=== PATIENT | male | born 1955 | race Caucasian/White ===

== ENCOUNTER → 2021-01-04 02:14 | Outpatient (CLI) | payer OTHER, SELFPAY ==
[2021-01-04 22:46] LABS: SARS-CoV-2 RNA PCR Negative
== END ==
PROVIDERS: PCP Internal Medicine; Visit Provider Internal Medicine Gastroenterology
DX: Z01.812 Encounter for preprocedural laboratory examination (principal); Z20.822 Contact with and (suspected) exposure to COVID-19
CPT/HCPCS: C9803; U0003; U0005

== ENCOUNTER 2021-01-07 00:45 | Day surgery (SDC) | payer OTHER, SELFPAY ==
[2020-12-28 08:57] VITALS: BMI 28.8
[2021-01-07 06:35] VITALS: BP 129/89; PULSE 86; RESP 20; TEMP 36.8; O2SAT 98; BMI 30.8
[2021-01-07] MEDS: LACTATED RINGERS 1,000 ML 150 ML IV CONT (06:46)
--- NOTE | 2021-01-07 07:02 | WPDANESEPPF ---
Anes - Initial Pre Proc Eval Procedure: Operation Date: 01/07/21 08:00 Proposed Procedures p Screening Colonoscopy - Fidel Narayan MD Date/Time: 01/07/21 07:02 Surgeon: Fidel Narayan MD Pre Op Diagnosis: Neoplasm Screening Patient Data Age: 65 Gender: M Height: 5 ft 8 in Weight: 91.9 kg Last Vital Signs Temp 36.8 C 01/07/21 06:35 Pulse 86 01/07/21 06:35 Resp 20 01/07/21 06:35 BP 129/89 01/07/21 06:35 Pulse Ox 98 01/07/21 06:35 Allergies Allergy/AdvReac Type Severity Reaction Status Date / Time No Known Allergies Allergy Verified 01/07/21 06:34 Home Medications Medication Instructions Recorded Confirmed Type sodium,potassium,mag sulfates 17.5 See Rx Instructions PO .COMPLEX 12/09/20 Rx gram-3.13 gram-1.6 gram oral soln #354 ml amlodipine 5 mg PO DAILY 12/28/20 01/07/21 History Patient hx anesthesia problems: none Family hx anesthesia problems: none [facility] Past Medical History Medical History Hypertension Smoker Tobacco abuse Social History Social History Smoking status: Current some day smoker Tobacco type: cigars Alcohol intake: never Substance use: never Substance use type: does not use Living arrangements: with family Spiritual care concerns: No Anes - Eval Final PreProcedure Day of Procedure 01/07/21 07:02 Patient weight: obese Heart: regular rate and rhythm Lungs: decreased breath sounds Airway: Mallampati scale class II Neurological: alert and oriented Last oral intake: >/= 8 hours ASA classification: III Emergent: no Anesthetic plan: proceed Anesthesia type and monitoring: general GIVS and standard monitoring Informed Consent: The patient's anesthetic plan and its attendant risks and benefits were discussed with the patient/family/POA. Questions were solicited and answers provided to the satisfaction of the patient/family/POA.
--- NOTE | 2021-01-07 07:30 | PM.HPGS ---
History of Present Illness History of Present Illness Consent: Risks, benefits, and alternatives have been discussed and questions answered. Patient agrees to proceed with procedure. Chief complaint: Neoplasm Screening Narrative: Ck Taylor is a 65 year old male here for first screening colonoscopy Review of Systems Constitutional: Constitutional: Denies headache(s) and Denies weakness Eyes: Eyes: Denies blurry vision ENT: Reports Normal hearing present, Denies headache(s) and Denies neck pain Cardiovascular: Cardiovascular: Denies chest pain and Denies dyspnea Respiratory: Respiratory: Denies dyspnea Gastrointestinal: Gastrointestinal: Reports no additional gastrointestinal complaints Genitourinary: Genitourinary: Denies dysuria Musculoskeletal: Musculoskeletal: Denies neck pain Integumentary/Breasts: Skin/Breast: Denies dry skin Neurologic: Reports Normal hearing present, Denies headache(s) and Denies weakness Psychiatric: Psychiatric: Denies anxiety Endocrine: Endocrine: Denies change in body appearance Hematologic/Lymphatic: Hematologic/Lymphatic: Denies easy bleeding Allergic/Immunologic: Allergic/Immunologic: Denies urticaria PMFSH Past Medical History Medical History Hypertension Smoker Tobacco abuse Social History Social History Smoking status: Current some day smoker Tobacco type: cigars Alcohol intake: never Substance use: never Substance use type: does not use Living arrangements: with family Spiritual care concerns: No Meds Home Medications and Allergies Home Medications Medication Instructions Recorded Confirmed Type sodium,potassium,mag sulfates 17.5 See Rx Instructions PO .COMPLEX 12/09/20 Rx gram-3.13 gram-1.6 gram oral soln #354 ml amlodipine 5 mg PO DAILY 12/28/20 01/07/21 History Allergies Allergy/AdvReac Type Severity Reaction Status Date / Time No Known Allergies Allergy Verified 01/07/21 06:34 Vital Signs Vital Signs - 24 hr 01/07/21 06:35 Temperature 98.2 F Pulse Rate 86 Respiratory Rate 20 Blood Pressure 129/89 Pulse Oximetry 98 Exam Const: General: comfortable and no acute distress HENMT: General nose exam: Normal nares present Eyes: General: appearance normal, both eyes and all related structures Neck: Neck: no JVD Resp: Auscultation: clear to auscultation bilaterally Cardio: Rate: regular rate Rhythm: regular rhythm GI: Inspection: non-distended GI Palp: Yes Soft to palpation Skin: General skin exam: normal color Neuro: General: gait normal Speech: normal speech Extrem: General: normal to inspection Psych: Mental Status: mental status grossly normal Assessment and Plan Assessment and plan (1) Colon cancer screening: Code(s): Z12.11 - Encounter for screening for malignant neoplasm of colon Status: Acute Assessment and Plan: proceed with colonoscopy
[2021-01-07 07:54] VITALS: BP 116/74; PULSE 72; RESP 19; O2SAT 99
[2021-01-07 08:04] VITALS: BP 110/68; PULSE 72; RESP 20; O2SAT 98
[2021-01-07 08:14] VITALS: BP 125/86; PULSE 64; RESP 15; O2SAT 99
== END 2021-01-07 08:25 | disposition home or self-care (01) ==
PROVIDERS: PCP Internal Medicine; Visit Provider Internal Medicine Gastroenterology
PROC: 0DJD8ZZ Inspection of Lower Intestinal Tract, Via Natural or Artificial Opening Endoscopic (ICD-10-PCS; CPT 45378; principal; 2021-01-07 08:00)
DX: Z12.11 Encounter for screening for malignant neoplasm of colon (principal); K63.5 Polyp of colon; K57.30 Diverticulosis of large intestine without perforation or abscess without bleeding; K64.8 Other hemorrhoids; I10 Essential (primary) hypertension; Z72.0 Tobacco use; E66.9 Obesity, unspecified; Z68.30 Body mass index [BMI] 30.0-30.9, adult
CPT/HCPCS: 45385; 88305; J2704; J7120

== ENCOUNTER 2021-07-06 06:39 | Outpatient (CLI) | payer OTHER, SELFPAY ==
[2021-07-06 07:46] LABS: Basophils Absolute Auto 0.1 K/mm3 (0.0-0.1); Basophils Percent Auto 0.9 % (0.2-1.2); Eosinophils Absolute Auto 0.3 K/mm3 (0-0.3); Hematocrit 45.1 % (42.0-52.0); Hemoglobin 15.1 g/dL (14.0-18.0); Immature Granulocyte Absolute 0.07 K/mm3 (0.00-0.031); Immature Granulocyte Percent A 0.8 % (0-0.5); Lymphocytes Absolute Auto 1.61 K/mm3 (0.9-3.2); Lymphocytes Percent Auto 17.8 % (18.3-44.2); Mean Corpuscular HGB Conc 33.5 g/dl (32-36); Mean Corpuscular Hemoglobin 31.3 pg (26-34); Mean Corpuscular Volume 93.6 fl (80-100); Mean Platelet Volume 10.2 fl (7.4-10.4); Monocytes Percent Auto 11.3 % (2.6-8.5); Neutrophils Percent Auto 66.2 % (45.5-73.1); Platelet Count Result 255 k/mm3 (150-375); Red Blood Count 4.82 M/mm3 (4.6-6.20); White Blood Count 9.1 K/mm3 (4.5-10.0)
[2021-07-06 08:27] LABS: Alanine Aminotransferase 24 U/L (4-50); Albumin Level 4.5 g/dL (3.5-5.1); Alkaline Phosphatase 74 U/L (38-126); Anion Gap 8 mmol/L (8-16); Aspartate Amino Transferase 30 U/L (17-59); Bilirubin,Total 0.7 mg/dL (0.2-1.3); Blood Urea Nitrogen 21 mg/dL (9-20); Calcium 9.5 mg/dL (8.4-10.2); Carbon Dioxide 24 mmol/L (22-30); Chloride 106 mmol/L (98-107); Cholesterol 204 mg/dL (0-200); Estimated Glomerular Filt Rate > 60; Glucose 109 mg/dL (65-110); HDL Direct 37 mg/dL; Potassium 4.2 mmol/L (3.4-5.0); Sodium 138 mmol/L (137-145); Triglycerides 118 mg/dL (<150)
[2021-07-06 08:37] LABS: LDL Cholesterol Direct 112 mg/dL
[2021-07-06 09:41] LABS: Creatinine Urine 244.6 mg/dL
[2021-07-06 09:45] LABS: Microalbumin Urine Random 9.7 mg/L (0-16.7)
[2021-07-06 10:18] LABS: Hepatitis B Surface Antigen Negative (Negative)
[2021-07-06 10:23] LABS: HAV RESULT Negative (Negative); Hepatitis B Core IgM Result Negative (Negative)
[2021-07-06 10:35] LABS: Hepatitis C Virus Antibody Negative (Negative)
== END 2021-07-06 06:40 | disposition home or self-care (01) ==
PROVIDERS: PCP Family Medicine; Visit Provider Physician Assistant
DX: I10 Essential (primary) hypertension (principal); R42 Dizziness and giddiness; Z76.89 Persons encountering health services in other specified circumstances
CPT/HCPCS: 36415; 80053; 80061; 80074; 82043; 84153; 85025; G0103

== ENCOUNTER 2021-07-08 07:55 | Outpatient (CLI) | payer OTHER, SELFPAY ==
--- NOTE | ~2021-07-08 | CT_ITS ---
EXAMINATION: CT brain wo con EXAM DATE: 07/08/2021 08:17 INDICATION: Dizziness TECHNIQUE: Spiral CT of the head was performed without contrast. Axial, coronal and sagittal images were reviewed. The dose-length product (DLP) for this examination was 605.33 mGy-cm. The exposure w as tailored according to patient size, and iterative reconstruction (ASIR) was used as additional dos e reduction technique. There is no prior study for comparison. FINDINGS: There is no acute intraparenchymal hemorrhage. No evidence of intraparenchymal brain mass lesion. No evidence of acute infarction. Please note that initial head CT has limited sensitivity f or small or acute infarctions. There is mild periventricular and subcortical hypodensity, nonspecific but probably related to small vessel ischemic disease. There is mild prominence of the sulci and v entricles related to cerebral atrophy. There is intracranial carotid arteriosclerosis. There are n o extra-axial collections. There is no mass effect or midline shift. The orbits are unremarkable. Soft tissue is unremarkable. Mild right ethmoid mucoperiosteal thickening. There is left frontal cr aniotomy, fixation hardware. IMPRESSION: 1. No acute intracranial findings. 2. Chronic age related findings. Reviewed, dictated and finalized at location A.
== END 2021-07-08 07:56 | disposition home or self-care (01) ==
LOC: ANHIMG 08:01
PROVIDERS: PCP Family Medicine; Visit Provider Physician Assistant
DX: R42 Dizziness and giddiness (principal); I10 Essential (primary) hypertension
CPT/HCPCS: 70450

== ENCOUNTER 2021-07-19 14:36 | Outpatient (CLI) | payer OTHER, SELFPAY ==
--- NOTE | ~2021-07-19 | US_ITS ---
EXAMINATION: US carotid duplex BI DATE: 07/19/2021 15:04 INDICATION: Hypertension. Headaches. TECHNIQUE: Grayscale, color Doppler, and pulsed Doppler images of the cervical carotid arteries were obtained. The degree of vessel stenosis is placed in one of the following categories: normal, <50%, 5 0-69%, >=70% but less than near-occlusion, near-occlusion, or total occlusion. Note that percent sten osis relative to normal distal artery lumen diameter is indirectly measured from velocity measurement s as described by Carter, et al. Radiology 2003; 229:340-346. Notes: Normal: Peak systolic velocity <125 centimeters/sec and no plaque <50%. Peak systolic velocity <125 ( EDV <40; ICA/CCA PSV ratio <2.0; used these factors only a tandem lesions or low cardiac output or co ntralateral disease) 50-69 %: PSV 125-230 (EDV 40-100; ratio 2-4) >= 70% but less than near occlusion: PSV greater than 230 (EDV > 100; ratio> 4.0) Near Occlusion: PSV that is variable; markedly narrowed lumen Occlusion: Absent flow on color/spectral Doppler and no lumen on jay scale. COMPARISON: None. FINDINGS: RIGHT: The right common carotid artery (CCA) peak systolic velocity (PSV) is 104 cm/s. The right internal ca rotid artery (ICA) PSV is 101 cm/s. The right ICA end-diastolic velocity (EDV) is 38 cm/s. The right ICA/CCA PSV ratio is 1.0. The external carotid artery (ECA) PSV is 119 cm/s. There is antegrade flow in the right vertebral artery. LEFT: The left CCA PSV is 89 cm/s. The left ICA PSV is 106 cm/s. The left ICA EDV is 43 cm/s. The left ICA/ CCA PSV ratio is 1.2. The ECA PSV is 127 cm/s. There is antegrade flow in the left vertebral artery. IMPRESSION: 1. Less than 50% stenosis in the right internal carotid artery by sonographic criteria. 2. Less than 50% stenosis in the left internal carotid artery by sonographic criteria. Reviewed, dictated and finalized at location A. IMPRESSION: 1. Less than 50% stenosis in the right internal carotid artery by sonographic marv mckeon. 2. Less than 50% stenosis in the left internal carotid artery by sonographic cindi shrestha.
== END 2021-07-19 14:37 | disposition home or self-care (01) ==
LOC: ANHIMG 14:38
PROVIDERS: PCP Family Medicine; Visit Provider Physician Assistant
DX: I10 Essential (primary) hypertension (principal); I65.23 Occlusion and stenosis of bilateral carotid arteries
CPT/HCPCS: 93880

== ENCOUNTER 2022-03-23 11:38 | Emergency (ER) | payer OTHER, SELFPAY ==
--- NOTE | ~2022-03-23 | XR_ITS ---
XR elbow RT min 3V DATE: 03/23/2022 12:34 INDICATION: Fall today. Right elbow and upper arm pain TECHNIQUE: 4 views COMPARISON: None FINDINGS: No fracture or dislocation or joint effusion. No periosteal reaction or bone destruction. IMPRESSION: No fracture or dislocation or joint effusion Reviewed, dictated and finalized at location A.
--- NOTE | ~2022-03-23 | XR_ITS ---
XR humerus RT DATE: 03/23/2022 12:34 INDICATION: Fall today. Right upper arm pain TECHNIQUE: 2 views COMPARISON: None FINDINGS: No fracture or dislocation, periosteal reaction or bone destruction. IMPRESSION: No fracture or dislocation Reviewed, dictated and finalized at location A. IMPRESSION: No fracture or dislocation
[2022-03-23 11:40] VITALS: BP 153/94; PULSE 65; RESP 16; TEMP 36.3; O2SAT 99
--- NOTE | 2022-03-23 12:12 | PC.NURSE ---
Provider at bedside
--- NOTE | 2022-03-23 12:30 | PC.NURSE ---
Pt to Xray
--- NOTE | 2022-03-23 13:03 | ED.UPPEXIN ---
HPI - Extremity Injury (Upper) General Chief Complaint: Extremity Injury, Upper Stated Complaint: fall, r arm pain Time Seen by Provider: 03/23/22 11:53 Source: patient Mode of arrival: ambulatory Limitations: no limitations History of Present Illness HPI narrative: 66-year-old male presents today with complaints of right upper arm pain after a fall he sustained this morning. Patient states he was walking slipped in the mud and fell with right arm outstretched. Since then his arm has been with pain. Denies any decrease in range of motion. Patient denies using any ice, analgesics, or any other pain relieving modalities. Patient currently with full range of motion, sensation intact no ecchymosis noted. Related Data Home Medications Medication Instructions Recorded Confirmed amlodipine 5 mg tablet 5 mg PO DAILY 12/28/20 01/07/21 Allergies Allergy/AdvReac Type Severity Reaction Status Date / Time No Known Allergies Allergy Verified 01/07/21 06:34 Review of Systems Review of Systems: CONSTITUTIONAL: Denies fever, chills, or sweats. EYES: Denies visual changes, redness, or discharge. ENT: Denies rhinorrhea, congestion, sore throat, or otalgia. CARDIOVASCULAR: Denies chest pain, palpitations, or edema. RESPIRATORY: Denies cough or dyspnea. GASTROINTESTINAL: Denies abdominal pain, nausea, vomiting, or diarrhea. GENITOURINARY: Denies dysuria or hematuria. SKIN: Denies rash or itching. MUSCULOSKELETAL: Right upper arm pain. Denies back pain, joint pain, or myalgia. NEUROLOGIC: Denies headache, numbness, dizziness, or weakness. PSYCHIATRIC: Denies anxiety or depression. [facility] Past Medical History Medical History Colon cancer screening Hypertension Smoker Tobacco abuse Social History Social History Smoking status: Current some day smoker Tobacco type: cigars Alcohol intake: never Substance use: never Substance use type: does not use Spiritual care concerns: No Exam Narrative: GENERAL: Well-appearing, well-nourished, and in no acute distress. HEAD: Normocephalic, atraumatic. EYES: PERRLA and EOMI. ENT: Nares clear, no rhinorrhea or epistaxis. Mucous membranes moist. Oropharynx without tonsillar hypertrophy exudate or other lesions. Bilateral TMs pearly jay nonbulging NECK: Supple. No adenopathy or masses. No carotid bruits or JVD CHEST: Clear to auscultation. No respiratory distress. No wheezes rales or rhonchi HEART: Regular rate and rhythm. No murmur heard. Normal peripheral pulses. ABDOMEN: Soft, nontender, nondistended, normal active bowel sounds. EXTREMITIES: Tenderness with palpation to right upper arm. No ecchymosis noted, no swelling noted, full range of motion. Right bicep appears smaller in nature than left. Range of motion. No edema. SKIN: Warm, dry, no rash. NEURO: No focal deficits. Alert and oriented x3. PSYCH: Normal mood and affect. Course Course Emergency Course: X-ray reviewed with patient. at bedside. Patient wanting pain relieving medications and will be discharged home. Plan to follow-up with provider if pain persist at 1 week or return with any new or worsening symptoms. Vital Signs Vital signs: Vital Signs Temperature 36.3 C L 03/23/22 11:40 Pulse Rate 65 03/23/22 11:40 Respiratory Rate 16 03/23/22 11:40 Blood Pressure 153/94 H 03/23/22 11:40 Pulse Oximetry 99 03/23/22 11:40 Oxygen Delivery Room Air 03/23/22 11:40 Temperature 36.3 C L 03/23/22 11:40 Pulse Rate 75 03/23/22 13:13 Respiratory Rate 16 03/23/22 13:13 Blood Pressure 134/75 03/23/22 13:13 Pulse Oximetry 99 03/23/22 13:13 Oxygen Delivery Room Air 03/23/22 11:40 MDM - Extremity Injury (Upper) MDM Narrative Medical decision making narrative: HPI as noted. Patient with minimal pain on palpation. Right bicep does appear smaller than left but is
[2022-03-23 13:13] VITALS: BP 134/75; PULSE 75; RESP 16; O2SAT 99
[2022-03-23] MEDS: KETOROLAC 30 MG/ML VIAL (*BKC) IM (13:13)
== END 2022-03-23 13:13 | disposition home or self-care (01) ==
PROVIDERS: Emergency Provider Nurse Practitioner Family; PCP Family Medicine
DX: S49.91XA Unspecified injury of right shoulder and upper arm, initial encounter (principal); I10 Essential (primary) hypertension; F17.290 Nicotine dependence, other tobacco product, uncomplicated; W01.0XXA Fall on same level from slipping, tripping and stumbling without subsequent striking against object, initial encounter
CPT/HCPCS: 73060; 73080; 96372; 99284; J1885

== ENCOUNTER → 2022-05-15 10:11 | Outpatient (CLI) | payer OTHER, SELFPAY ==
--- NOTE | ~2022-05-15 | XR_ITS ---
XR chest 2V DATE: 05/15/2022 10:25 INDICATION: Shortness of breath. TECHNIQUE: 2 views COMPARISON: None FINDINGS: Normal heart size. Mild aortic calcification and minimal unfolding. No hilar or mediastinal enlargement. No pulmonary infiltrate or consolidation, pleural effusion or pulmonary vascular conges tion or pneumothorax is detected. IMPRESSION: No active cardiopulmonary disease Reviewed, dictated and finalized at location B.
== END ==
PROVIDERS: PCP Physician Assistant; Visit Provider Physician Assistant
DX: R06.02 Shortness of breath (principal); Z86.16 Personal history of COVID-19
CPT/HCPCS: 71046

== ENCOUNTER 2022-06-12 14:23 | Emergency (ER) | payer OTHER, MEDICAID, SELFPAY ==
--- NOTE | ~2022-06-12 | CT_ITS ---
EXAMINATION: CT brain wo con DATE: 06/12/2022 16:23 INDICATION: Dizziness. TECHNIQUE: Computed tomography (CT) of the head was performed without intravenous contrast. The mA wa s adjusted according to patient size. Iterative reconstruction technique was employed. The dose-lengt h product was 681.00 mGy-cm. COMPARISON: Head CT 07/08/2021 FINDINGS: There is no intracranial hemorrhage, acute infarction, or abnormal intracranial mass lesion . The ventricles are normal in size. There is mild mucosal thickening in the paranasal sinuses. The o rbits are normal. The mastoid air cells are normal. There are changes of left-sided craniotomy. IMPRESSION: 1. Normal brain. Reviewed, dictated and finalized at location A. IMPRESSION: 1. Normal brain.
--- NOTE | ~2022-06-12 | XR_ITS ---
XR chest 1V portable 06/12/2022 16:14 Indication: Dizziness for 3 days Procedure: AP portable chest Comparison: 05/15/2022 Findings: Heart size normal. No focal air space disease, pulmonary edema, pleural effusion or suspect ed pneumothorax. No acute osseous abnormality. Impression: 1: No acute cardiopulmonary disease. Reviewed, dictated and finalized at location B. Impression: 1: No acute cardiopulmonary disease.
[2022-06-12 14:47] VITALS: BP 180/97; PULSE 73; RESP 16; TEMP 36.5; O2SAT 99
--- NOTE | 2022-06-12 14:50 | ECG_ITS ---
Measurements Intervals [place] Rate: 73 P: 67 WV: 145 QRS: 42 QRSD: 98 T: 18 QT: 385 QTc: 426 Interpretive Statements SINUS RHYTHM NORMAL ECG NO PREVIOUS ECG AVAILABLE FOR COMPARISON Electronically Signed On 06-13-2022 8:45:34 CDT by Andres Davis M.D.
[2022-06-12 15:22] LABS: Basophils Absolute Auto 0.1 K/mm3 (0.0-0.1); Basophils Percent Auto 0.7 % (0.2-1.2); Eosinophils Absolute Auto 0.3 K/mm3 (0-0.3); Eosinophils Percent Auto 3.3 % (0-4.4); Hematocrit 43.1 % (42.0-52.0); Hemoglobin 14.2 g/dL (14.0-18.0); Immature Granulocyte Absolute 0.03 K/mm3 (0.00-0.031); Immature Granulocyte Percent A 0.3 % (0-0.5); Lymphocytes Absolute Auto 2.22 K/mm3 (0.9-3.2); Lymphocytes Percent Auto 24.1 % (18.3-44.2); Mean Corpuscular HGB Conc 32.9 g/dl (32-36); Mean Corpuscular Hemoglobin 30.6 pg (26-34); Mean Corpuscular Volume 92.9 fl (80-100); Mean Platelet Volume 9.6 fl (7.4-10.4); Monocytes Absolute Auto 1.1 K/mm3 (0.1-0.6); Monocytes Percent Auto 11.9 % (2.6-8.5); Neutrophils Absolute Auto 5.5 K/mm3 (1.3-6.7); Neutrophils Percent Auto 59.7 % (45.5-73.1); Platelet Count Result 248 k/mm3 (150-375); Red Blood Count 4.64 M/mm3 (4.6-6.20); Red Cell Distribution Width 12.5 % (11.5-14.5); White Blood Count 9.2 K/mm3 (4.5-10.0)
[2022-06-12 15:29] LABS: Alanine Aminotransferase 22 U/L (6-50); Albumin Level 4.4 g/dL (3.5-5.1); Alkaline Phosphatase 66 U/L (38-126); Anion Gap 8 mmol/L (8-16); Aspartate Amino Transferase 25 U/L (17-59); Bilirubin,Total 0.3 mg/dL (0.2-1.3); Blood Urea Nitrogen 15 mg/dL (9-20); Carbon Dioxide 26 mmol/L (22-30); Chloride 105 mmol/L (98-107); Estimated CRCL calculation 76 ml/min; Estimated Glomerular Filt Rate > 60; Glucose 106 mg/dL (65-110); Potassium 4.1 mmol/L (3.4-5.0); Sodium 139 mmol/L (137-145)
--- NOTE | 2022-06-12 16:07 | ED.GENADULT ---
HPI - General Adult General Chief complaint: Syncope Stated complaint: unstableness Time Seen by Provider: 06/12/22 15:59 Source: RN notes reviewed History of Present Illness HPI narrative: Patient presents emergency department from home for dizziness. Patient states that symptoms initially began 4 days ago he states he was again on his camper for the week and he states he had bent down to get some tools and do some work states he had stood up to put some tools away rib intact down to work again and then when he stood up became very dizzy he states that he felt the room was spinning on him and he had to sit down to keep from falling down he denies any unilateral numbness or weakness states that since that time he is felt mildly unsteady on his feet he denies any fevers or chills chest pain shortness of breath or any other symptom. s patient states he does have a history of dizzy spells and has meclizine at home but did not want to take it until he was evaluated Related Data Home Medications Medication Instructions Recorded Confirmed amlodipine 5 mg tablet 5 mg PO DAILY 12/28/20 01/07/21 Allergies Allergy/AdvReac Type Severity Reaction Status Date / Time No Known Allergies Allergy Verified 01/07/21 06:34 Review of Systems Review of Systems: Gen.: Denies fevers or chills ENT: Denies congestion Respiratory: Denies shortness of breath or cough CV: Denies chest pain or palpitations GI: Denies abdominal pain nausea, emesis or diarrhea Musculoskeletal: Denies back pain or muscle pain Neuro: See HPI Skin: Denies rash Except as documented, all other systems reviewed and negative [facility] Past Medical History Medical History Colon cancer screening Hypertension Smoker Tobacco abuse Social History Social History Smoking status: Current some day smoker Tobacco type: cigars Alcohol intake: never Substance use: never Substance use type: does not use Spiritual care concerns: No Exam Narrative: APPEARANCE: No acute distress, nontoxic, resting in bed HEENT: Normocephalic, atraumatic, OMM, TMs clear bilaterally EYES: PERRL, EOMI NECK: Supple, nontender, full range of motion without pain, RESPIRATORY: No respiratory distress, clear to auscultation bilaterally with no rhonchi wheezing or rales CARDIOVASCULAR: RRR s murmur ABDOMINAL: Soft, nontender, nondistended MUSCULOSKELETAL: Moves all extremities. No clubbing, cyanosis or edema. NEURO: A and O ?3, following commands, speech normal, no facial droop,muscle strength 5 out of 5 bilateral upper and lower extremities SKIN:: Warm, dry. Normal Color PSYCHIATRIC: Normal affect/mood Course Course Emergency Course: Patient states he is feeling much better following Antivert states dizziness is resolved. Patient able to ambulate in ED with no difficult Discussed with patient results of workup and diagnosis. Discussed need for follow-up with primary care, proper use of medication, and reasons to return to the emergency department. Patient understands and agrees to current treatment plan Vital Signs Vital signs: Vital Signs Temperature 97.7 F 06/12/22 14:47 Pulse Rate 73 06/12/22 14:47 Respiratory Rate 16 06/12/22 14:47 Blood Pressure 180/97 H 06/12/22 14:47 Pulse Oximetry 99 06/12/22 14:47 Oxygen Delivery Room Air 06/12/22 14:47 Temperature 98.6 F 06/12/22 16:11 Pulse Rate 75 06/12/22 17:52 Respiratory Rate 18 06/12/22 17:52 Blood Pressure 143/89 H 06/12/22 17:52 Pulse Oximetry 98 06/12/22 17:52 Oxygen Delivery Room Air 06/12/22 16:16 Medical Decision Making MDM Narrative Medical decision making narrative: Patient's vertigo is felt to be likely peripheral in origin. There is no diplopia, dysarthria or dysphagia. Patient's gait is stable and there are no cerebral deficits to exam. Risk factor for central causes
[2022-06-12 16:11] VITALS: BP 154/88; PULSE 69; RESP 22; TEMP 37; O2SAT 98
[2022-06-12 16:16] VITALS: BP 156/91; PULSE 72; RESP 18; O2SAT 98
[2022-06-12 16:19] LABS: Creatine Kinase 63 U/L (55-170)
[2022-06-12 16:31] LABS: Troponin I < 0.012 ng/mL (0.000-0.034)
[2022-06-12] MEDS: MECLIZINE HCL 25 MG TABLET PO (16:32)
[2022-06-12] MEDS: SODIUM CHLORIDE 0.9% IV 1,000 ML 999 ML IV CONT (16:45)
[2022-06-12 17:15] LABS: Appearance Urine Clear (Clear); Bilirubin Urine Negative (Negative); Blood Urine Negative (Negative); Color Urine Yellow (Yellow); Glucose Urine UA Negative (Negative); Ketones Urine Negative (Negative); Leukocyte Esterase Ur Negative LEU/UL (Negative); Nitrate Urine Negative (Negative); Protein Urine Negative (Negative); Urobilinogen Urine 0.2 mg/dL (<2.0)
[2022-06-12 17:22] LABS: Mucus Urine Rare /lpf; RBC Urine 0-2 /hpf (0-2); WBC Urine 0-3 /hpf
[2022-06-12 17:29] LABS: Add Urine Microscopic? NO
[2022-06-12 17:47] VITALS: BP 143/89; BP 164/104; BP 165/103; PULSE 66; PULSE 73; PULSE 75
[2022-06-12 17:52] VITALS: BP 143/89; PULSE 75; RESP 18; O2SAT 98
[2022-06-12 18:43] VITALS: BP 139/87; PULSE 66; RESP 18; O2SAT 99
== END 2022-06-12 18:44 | disposition home or self-care (01) ==
PROVIDERS: Emergency Medicine; Emergency Provider Emergency Medicine; PCP Physician Assistant
DX: R42 Dizziness and giddiness (principal); I10 Essential (primary) hypertension
CPT/HCPCS: 36415; 70450; 71045; 80053; 81003; 82550; 84484; 85025; 93005; 96360; 99284; A9270; J7030

== ENCOUNTER 2022-06-14 07:36 | Outpatient (CLI) | payer OTHER, MEDICAID, SELFPAY ==
[2022-06-14 08:45] LABS: Basophils Absolute Auto 0.1 K/mm3 (0.0-0.1); Basophils Percent Auto 0.9 % (0.2-1.2); Eosinophils Absolute Auto 0.2 K/mm3 (0-0.3); Eosinophils Percent Auto 3.2 % (0-4.4); Hematocrit 44.9 % (42.0-52.0); Hemoglobin 14.9 g/dL (14.0-18.0); Immature Granulocyte Absolute 0.03 K/mm3 (0.00-0.031); Immature Granulocyte Percent A 0.4 % (0-0.5); Lymphocytes Absolute Auto 1.63 K/mm3 (0.9-3.2); Lymphocytes Percent Auto 21.8 % (18.3-44.2); Mean Corpuscular HGB Conc 33.2 g/dl (32-36); Mean Corpuscular Hemoglobin 30.9 pg (26-34); Mean Corpuscular Volume 93.2 fl (80-100); Monocytes Absolute Auto 0.8 K/mm3 (0.1-0.6); Monocytes Percent Auto 11.2 % (2.6-8.5); Neutrophils Absolute Auto 4.7 K/mm3 (1.3-6.7); Neutrophils Percent Auto 62.5 % (45.5-73.1); Platelet Count Result 268 k/mm3 (150-375); Red Blood Count 4.82 M/mm3 (4.6-6.20); Red Cell Distribution Width 12.4 % (11.5-14.5); White Blood Count 7.5 K/mm3 (4.5-10.0)
[2022-06-14 08:59] LABS: Alanine Aminotransferase 21 U/L (6-50); Albumin Level 4.4 g/dL (3.5-5.1); Alkaline Phosphatase 66 U/L (38-126); Anion Gap 9 mmol/L (8-16); Aspartate Amino Transferase 24 U/L (17-59); Bilirubin,Total 0.3 mg/dL (0.2-1.3); Blood Urea Nitrogen 14 mg/dL (9-20); Calcium 9.4 mg/dL (8.4-10.2); Carbon Dioxide 25 mmol/L (22-30); Chloride 101 mmol/L (98-107); Cholesterol 219 mg/dL (0-200); Estimated Glomerular Filt Rate > 60; Glucose 109 mg/dL (65-110); HDL Direct 43 mg/dL; Sodium 135 mmol/L (137-145); Triglycerides 96 mg/dL (<150)
[2022-06-14 09:10] LABS: LDL Cholesterol Direct 137 mg/dL
[2022-06-14 09:26] LABS: Prostate Specific Antigen 0.7 ng/mL (< OR = 4.0)
== END 2022-06-14 07:37 | disposition home or self-care (01) ==
LOC: ANHLAB 07:46
PROVIDERS: PCP Physician Assistant; Visit Provider Physician Assistant
DX: I10 Essential (primary) hypertension (principal); Z12.5 Encounter for screening for malignant neoplasm of prostate
CPT/HCPCS: 36415; 80053; 80061; 84153; 85025; G0103

== ENCOUNTER 2022-06-21 07:41 | Outpatient (CLI) | payer OTHER, MEDICAID, SELFPAY ==
[2022-06-21 09:37] LABS: Anion Gap 9 mmol/L (8-16); Blood Urea Nitrogen 17 mg/dL (9-20); Calcium 9.4 mg/dL (8.4-10.2); Carbon Dioxide 25 mmol/L (22-30); Chloride 102 mmol/L (98-107); Estimated Glomerular Filt Rate > 60; Glucose 103 mg/dL (65-110); Potassium 4.2 mmol/L (3.4-5.0); Sodium 136 mmol/L (137-145)
[2022-06-21 10:06] LABS: Prostate Specific Antigen 0.6 ng/mL (< OR = 4.0)
== END 2022-06-21 07:42 | disposition home or self-care (01) ==
PROVIDERS: PCP Physician Assistant; Visit Provider Physician Assistant
DX: E87.1 Hypo-osmolality and hyponatremia (principal); Z12.5 Encounter for screening for malignant neoplasm of prostate
CPT/HCPCS: 36415; 80048; 84153; G0103

== ENCOUNTER 2022-12-22 10:47 | Outpatient (CLI) | payer OTHER, MEDICAID, SELFPAY ==
[2023-01-01 14:07] LABS: Z Score Male -0.7 SD (-2.0 - +2.0)
== END 2022-12-22 10:48 | disposition home or self-care (01) ==
PROVIDERS: PCP Physician Assistant
DX: Z87.820 Personal history of traumatic brain injury (principal)
CPT/HCPCS: 36415; 82533; 84305; 84443